=== PATIENT | female | born 1985 | race Caucasian/White ===

== ENCOUNTER 2016-08-05 09:03 | Emergency (ER) | payer OTHER ==
[2016-08-05 09:15] VITALS: BP 154/91
--- NOTE | 2016-08-05 10:24 | UC ---
Octavio Choi Adam, [facility] on 08/05/16 at 0925 . Respiratory Complaint HPI - HPI Summary HPI Summary: Nurse's Note: c/o coughing, runny nose since last night. When pt woke uup this morning, she states her throat feels like its" burning". In Room: Pt states that her chief complaint is coughing because it prevented her from sleeping. The cough just set on last night and it is causing her to have a sore throat too. Prior to last night she had nasal congestion and post- nasal drip for several days. She also feels hotter than normal. She denies any CP, N/V/D, or SOB. She has a Hx of exercise-induced asthma but does not use an inhaler regularly. She does not remember ever having a cough like this before. She states that everyone in her house is sick. Negative PMHx. Pt is not a smoker. FMHx of cardiac disease. - History of Current Complaint Chief Complaint: UCRespiratory Stated Complaint: RESP COMPLAINT Hx Obtained From: Patient Hx Last Menstrual Period: 07/25/16 Onset/Duration: Gradual Onset, Lasting Days, Still Present Timing: Constant Severity Initially: Moderate Severity Currently: Moderate Character: Cough: Nonproductive Aggravating Factors: Deep Breaths Alleviating Factors: Nothing Associated Signs And Symptoms: Positive: URI, Nasal Congestion - Allergies/Home Medications Allergies/Adverse Reactions: Allergies Allergy/AdvReac Type Severity Reaction Status Date / Time No Known Allergies Allergy Verified 08/05/16 09:16 Home Medications: Home Medications Ascorbic Acid TAB* [Vitamin C TAB*] 500 mg PO DAILY 08/05/16 [History Confirmed 08/05/16] Biotin 1 mg PO 08/05/16 [History Confirmed 08/05/16] Cholecalciferol [Vitamin D] 1,000 unit PO 08/05/16 [History] Cyanocobalamin [Vitamin B-12] 100 mcg PO 08/05/16 [History] Shasta-3 Fatty Acids [Fish Oil] 1,000 mg PO 08/05/16 [History] Czjpausgpishx-Dayfgozqnm-Jb-Gu [Severe Cold & Flu Daytime] 1 liq PO 08/05/16 [ History] Pseudoephedrine-Acetaminophen [Sinus Maximum Strength] 1 tab PO 08/05/16 [ History] PMH/Surg Hx/FS Hx/Imm Hx - Surgical History Surgical History: Yes Surgery Procedure, Year, and Place: none - Family History Known Family History: Positive: Cardiac Disease - Social History Occupation: Student Lives: Alone Alcohol Use: Occasionally Substance Use Type: Marijuana Substance Use Comment - Amount & Last Used: occ usage Smoking Status (MU): Never Smoked Tobacco Review of Systems ENT: Sore Throat, Nasal Discharge Respiratory: Cough Cardiovascular: Negative Gastrointestinal: Negative All Other Systems Reviewed And Are Negative: Yes Physical Exam Triage Information Reviewed: Yes Appearance: Well-Appearing, No Pain Distress, Well-Nourished Vital Signs: Initial Vital Signs Temp 98.4 F 08/05/16 09:06 Pulse 106 08/05/16 09:06 Resp 16 08/05/16 09:06 BP 154/91 08/05/16 09:06 Pulse Ox 96 08/05/16 09:06 Eyes: Positive: Conjunctiva Clear ENT: Positive: Hearing grossly normal, TMs normal, Other: - PHARYNGEAL ERYTHEMA ON THE LEFT. Negative: Muffled/hoarse voice Neck: Positive: Supple, No Lymphadenopathy Respiratory: Positive: Other: - EXTENDED EXPIRATORY PHASE WITH SCATTERED RHONCHI. Cardiovascular: Positive: RRR, No Murmur Abdomen Description: Positive: Nontender, No Organomegaly, Soft Bowel Sounds: Positive: Present Musculoskeletal: Positive: Strength Intact, ROM Intact Neurological: Positive: Alert Psychological: Positive: Age Appropriate Behavior Skin: Negative: rashes UC Diagnostic Evaluation - Laboratory O2 Sat by Pulse Oximetry: 96 Respiratory Course/Dx - Course Course Of Treatment: Prescription monitoring number: [id number]. - Differential Dx/Diagnosis Differential Diagnosis/HQI/PQRI: Other - PNA vs bronchitis Provider Diagnoses: Bronchitis with bronchospasm Discharge - Discharge Plan Condition: Stable Disposition: HOME Prescriptions: Benzonatate CAP* [Tessalon CAP*] 100 mg PO TID #20 cap MDD 3 Dexamethasone TAB* [Decadron TAB*] 4 mg PO DAILY #4 tab Guaifenesin-Codeine [Guaiatussin AC] 1 syp PO QID #1 syp MDD 4 tsp Patient Education Materials: Bronchospasm (ED), Acute Bronchitis (ED) Forms: *Work Release Additional Instructions: WE DISCUSSED: 1. YOU HAVE BRONCHITIS WITH BRONCHOSPASM. 2. RE CHECK AT ANY TIME FOR CHEST PAIN, TEMPERATURE, NEW COUGH. I WILL BE HERE IN TWO DAYS, IF YOU WANT TO CALL ME. 3. YOU HAVE BEEN STARTED ON ALBUTEROL WHICH YOU HAVE AT HOME. 4. ALSO, PREDNISONE. 5. NO ANTIBIOTIC HAS BEEN PRESCRIBED. 6. ALSO COUGH SYRUP WITH CODEINE AND TESSALON CAPS. 7. YOU SHOULD STAY HOME FOR TODAY AND TOMORROW. 8. RE CHECK IF YOU ARE NOT IMPROVING IN 3 DAYS. ALBUTEROL AND SPACER: 2 PUFFS, FOUR TIMES A DAY FOR 2-5 DAYS FOR COUGH ALSO: Guaifenesin AC syrup (guaifenesin 100 mg and codeine 10 mg per 5 ml) Label: 1 teaspoon every 4 to 6 hours as needed for cough at Night Disp: 2 (two) oz Dexamethasone tab 4 mg Label: two tablets daily FOR TWO DAYS Disp: 4 Tessalon (benzonate) 100 mg Perle Label: one tab every 6 to 8 hours as needed for cough during the day Disp:20 COUGH, CONGESTION of CHEST, SINUSES OR EARS: The most important goal is to liquefy all the phlegm and get it out of your head and chest. Any illness causing cough, congestion, sore throat or sinus discomfort can be helped by doing the following: STAND UNDER SHOWER STREAM TO LOOSEN SECRETIONS. STAY AWAY FROM ANY SMOKE OR IRRITANTS. WHAT ELSE CAN HELP RELIEVE YOUR SYMPTOMS: DECONGESTANT: helps relieve stuffiness and clears sinuses. Pseudoephedrine ( Sudafed or generic) is effective but you need to ask the pharmacist for it because it may be kept behind the counter. ANTIHISTAMINES: are NOT helpful in many colds and flus because they can worsen sore throat, dry eyes and mouth and cause drowsiness. Examples are diphenhydramine, doxylamine and chlorpheniramine. They can help dry you out if you are having profuse, clear drainage from the nose. EXPECTORANTS: helps thin mucous in the nose and chest, making it easier to clear the fluid out. Expectorants are in most combination cough/cold remedies and should be taken with plenty of water. Guaifenesin is the most common expectorant and it comes in pill or liquid form. Mucinex is an extended release form of guaifenesin. COUGH SUPPRESANT: reduces the body's cough reflex. Dextromethorphan is in over the counter products, but sometimes narcotics such as codeine or hydrocodone are used to suppress cough. The most important goal is to liquefy all the phlegm and get it out of your head and chest: The following medicines (in prescription form or you can buy them without prescription) may help: To help with cough: DEXTROMETHORPHAN (Vicks, Robitussin, Nyquil and other brands) To help break up phlegm: GUAIFENESIN (Mucinex, Robitussin, other brands) To help clear congestion: PSEUDOEPHEDRINE (Sudafed, Dimetapp, other brands) TRY TO CLEAR NOSE: AFRIN NASAL SPRAY: 2-3 SPRAYS PER NOSTRIL, TWICE A DAY FOR TWO DAYS ONLY. STAND UNDER SHOWER STREAM TO LOOSEN SECRETIONS. USE A VAPORIZOR. STAY AWAY FROM ANY SMOKE OR IRRITANTS. USE SALINE NASAL SPRAY TO KEEP FLOW OF MUCOUS FROM NOSTRILS AND SINUSES. CONSIDER USING NETI POT TO HELP WITH ALLERGIES AND CONGESTION IN THE NOSE. USE THIS THREE TIMES A WEEK. YOU CAN GET THIS AT [employer] IN [place] OR VARIOUS DRUGSTORES. DRINK LOTS OF WARM FLUIDS USEFUL HOME REMEDIES: WARM WATER GARGLES, WITH TSP OF SALT PER 8 OUNCES OF WATER, GARGLE FOR A FEW SECONDS AND SPIT OUT; GARGLE AND SPIT OUT; EVERY THREE HOURS. AND/OR: WARM WATER OR TEA, HONEY AND LEMON; 2-3 CUPS A DAY. FOR SORE THROAT: KEEP THROAT MOIST WITH LOZENGES; TEA AND HONEY. USE WARM WATER GARGLES 3-4 TIMES A DAY. RE-CHECK IN 1O DAYS, NEEDED, IF YOU ARE NOT IMPROVING. RETURN HERE OR SEE YOUR PHYSICIAN. RE-CHECK SOONER IF INCREASED PAIN OR TEMPERATURE The documentation as recorded by the Octavio garcia Adam accurately reflects the service I personally performed and the decisions made by me, Rupesh Varela MD.
== END 2016-08-05 10:30 | disposition home or self-care (01) ==
LOC: UCEAST 09:03
DX: J20.9 Acute bronchitis, unspecified (principal); F12.90 Cannabis use, unspecified, uncomplicated
CPT/HCPCS: 99212; G0463

== ENCOUNTER 2016-09-11 06:37 | Day surgery (SDC) | payer MEDICAID, OTHER ==
[~2016-09-11 06:37] MED LIST: Buffered Lidocaine 1% SYR 3ML* 3 ML/SYR SYRINGE INTRADERM ONE; Famotidine IV* 10 MG/ML 2 ML (20 mg) IV ONE; Famotidine IV* 10 MG/ML 2 ML (20 mg) ONE
[2016-09-11 06:41] LABS: Manual Entry Verification CAR0052; UR Preg Internal Control QC Line Present; UR Preg Kit Lot# 6060104
[2016-09-11] MEDS ORDERED: fentaNYL* 50 MCG/ML 2 ML VIAL (100 MCG VIAL) ONE ×4 (07:42→08:59)
[2016-09-11] MEDS ORDERED: Lidocaine 2% PF * 5 ML VIAL ONE ×2 (07:42→07:43)
[2016-09-11] MEDS ORDERED: Midazolam* 1 MG/ML 5 ML VIAL (5 MG) ONE ×2 (07:42)
[2016-09-11] MEDS ORDERED: Ketorolac INJ* 30 MG/ML 1 ML VIAL ONE ×2 (07:42→07:43)
[2016-09-11] MEDS ORDERED: Ondansetron INJ* 2 MG/ML VIAL ONE ×2 (07:43)
[2016-09-11] MEDS ORDERED: Propofol* 10 MG/ML 20 ML BTL IV PUSH ONE ×2 (07:43)
[2016-09-11] MEDS ORDERED: KETAMINE HCL* 50 MG/ML 10 ML VIAL ONE ×2 (08:00)
[2016-09-11] MEDS ORDERED: Silver Nitrate/Potassium Nitr* 1 EA STICK ONE ×4 (08:38→08:51)
[2016-09-11] MEDS ORDERED: Acetaminophen TAB* 325 MG PO PRN (08:52)
[2016-09-11] MEDS ORDERED: DiMENhydriNATE IV* 50 MG/ML VIAL IV PUSH PRN (08:52)
[2016-09-11] MEDS ORDERED: Acetaminophen TAB* 325 MG ONE ×2 (08:56)
[2016-09-11] MEDS: fentaNYL* 50 MCG/ML 2 ML VIAL (100 MCG VIAL) IV PRN ×2 (09:00→09:15)
[2016-09-11 09:58] VITALS: BP 137/85
--- NOTE | 2016-09-12 00:44 | OP ---
DATE OF PROCEDURE: 09/11/16 [facility] DATE OF : 87 SURGEON: Maria Romo MD ANESTHESIOLOGIST: Magdalena Zarate MD ANESTHESIA: Monitored anesthesia care and local anesthesia. PRE-OP DIAGNOSIS: Desires permanent sterilization. POST-OP DIAGNOSIS: Desires permanent sterilization. OPERATIVE PROCEDURE: Hysteroscopy and Essure sterilization. ESTIMATED BLOOD LOSS: Minimal. FLUIDS: Crystalloid. DRAINS: None. FINDINGS: Normal appearing uterine cavity. COMPLICATIONS: None. COUNTS: Correct. DESCRIPTION OF PROCEDURE: After informed consent was signed, the patient was taken to the operating room where she was given monitored anesthesia care, which she was prepped and draped in the dorsal lithotomy position and a candy- cane stirrups. A speculum was placed into the vagina to expose the cervix and the anterior lip of the cervix was grasped with a single-tooth tenaculum. A 1% lidocaine with epinephrine was injected into the cervix, approximately 9 mL to provide a cervical block. The cervix was then easily dilated until the hysteroscope could be inserted. The hysteroscope was assembled and inserted and the uterine cavity was visualized. There was some difficulty with obtaining adequate visualization of the uterine cavity because the patient's cervix did not create a good seal around the hysteroscope. Eventually, good visualization was had of both ostia. The Essure device was then inserted through the hysteroscope and first inserted into the right tube. A device was deployed and 2 rings were left visualized in the uterine cavity. The second Essure device was inserted through the hysteroscope and deployed into the left tube and 3 rings were left visualized in the uterine cavity. The hysteroscope was then removed. The tenaculum was removed and there was good hemostasis with silver nitrate. Speculum was removed from the vagina. The patient was awakened from anesthesia and moved to the stretcher and taken to the recovery room in stable condition. [id number]/[facility] #: [id number] MTDKaylee
== END 2016-09-11 09:56 | disposition home or self-care (01) ==
LOC: OR 06:37
PROVIDERS: ATTEND Obstetrics & Gynecology
DX: Z30.2 Encounter for sterilization (principal)
CPT/HCPCS: 81025; A9270-GY; J1885; J2250; J2405; J2704; J3010; J7306

== ENCOUNTER 2016-11-03 18:08 | Emergency (ER) | payer OTHER ==
[2016-11-03 19:24] VITALS: BP 128/85
--- NOTE | 2016-11-03 19:45 | UC ---
Lower Extremity/Ankle HPI - HPI Summary HPI Summary: Rolled L ankle stepping down one step earlier this afternoon. Multiple sprains on that ankle before, no previous sx or fx. Is bearing weight. - History of Current Complaint Chief Complaint: UCLowerExtremity Stated Complaint: ANKLE INJURY FROM FALL Time Seen by Provider: 11/03/16 19:32 Hx Obtained From: Patient Hx Last Menstrual Period: 10/05/16 ?: No Onset/Duration: Sudden Onset Severity Initially: Moderate Severity Currently: Moderate Aggravating Factor(s): Standing, Ambulation Alleviating Factor(s): Rest Able to Bear Weight: Yes - Allergies/Home Medications Allergies/Adverse Reactions: Allergies Allergy/AdvReac Type Severity Reaction Status Date / Time Acetaminophen [From Percocet] Allergy EXTREME Verified 11/03/16 19:24 HEADACHES Oxycodone [From Percocet] Allergy EXTREME Verified 11/03/16 19:24 HEADACHES PMH/Surg Hx/FS Hx/Imm Hx Respiratory History Of: Reports: Asthma - PRN INHALER, Bronchitis - 08/2016 - Surgical History Surgical History: Yes Surgery Procedure, Year, and Place: -4 YEARS AGO - Family History Known Family History: Positive: Cardiac Disease - Social History Lives: With Family Alcohol Use: Occasionally Substance Use Type: None Substance Use Comment - Amount & Last Used: occ usage Smoking Status (MU): Never Smoked Tobacco Review of Systems Constitutional: Negative Skin: Negative Eyes: Negative ENT: Negative Respiratory: Negative Cardiovascular: Negative Gastrointestinal: Negative Genitourinary: Negative Motor: Negative Neurovascular: Negative Musculoskeletal: Arthralgia - L ankle Neurological: Negative Psychological: Negative All Other Systems Reviewed And Are Negative: Yes Physical Exam Triage Information Reviewed: Yes Appearance: Well-Appearing, Pain Distress - mild, Obese Vital Signs: Initial Vital Signs Temp 98.9 F 11/03/16 19:20 Pulse 78 11/03/16 19:20 Resp 20 11/03/16 19:20 BP 128/85 11/03/16 19:20 Pulse Ox 99 11/03/16 19:20 Vital Signs Reviewed: Yes Eye Exam: Normal Eyes: Positive: Conjunctiva Clear ENT Exam: Normal ENT: Positive: Normal ENT inspection, Hearing grossly normal, Pharynx normal, TMs normal Dental Exam: Normal Neck exam: Normal Neck: Positive: Supple, Nontender, No Lymphadenopathy Respiratory Exam: Normal Respiratory: Positive: Chest non-tender, Lungs clear, Normal breath sounds, No respiratory distress, No accessory muscle use Cardiovascular Exam: Normal Cardiovascular: Positive: RRR, No Murmur Musculoskeletal: Positive: ROM Intact, Other: - L lateral malleolus tenderness Neurological Exam: Normal Neurological: Positive: Alert Psychological Exam: Normal Skin Exam: Normal Lower Extremity Course/Dx - Differential Dx/Diagnosis Provider Diagnoses: L ankle sprain. Elevated blood pressure due to pain Discharge - Discharge Plan Condition: Stable Disposition: HOME Patient Education Materials: Ankle Sprain (ED) Referrals: Rupert Ritchie MD [Medical Doctor] - Additional Instructions: Ice, elevate, and use ibuprofen for pain. If you are still having significant pain or trouble with daily activities after 2 weeks, please see the orthopedist listed here.
--- NOTE | 2016-11-03 20:08 | RAD ---
HISTORY: Injury, left ankle COMPARISONS: None VIEWS: 3, Frontal, lateral, and oblique views of the left ankle FINDINGS: BONE DENSITY: Normal. BONES: There is no displaced fracture. JOINTS: There is no arthropathy. ALIGNMENT: There is no dislocation. SOFT TISSUES: There is circumferential soft tissue swelling OTHER FINDINGS: None. IMPRESSION: SOFT TISSUE SWELLING. NO ACUTE OSSEOUS INJURY. IF SYMPTOMS PERSIST, RECOMMEND REPEAT IMAGING.
== END 2016-11-03 20:35 | disposition home or self-care (01) ==
LOC: UCEAST 18:08
DX: S93.402A Sprain of unspecified ligament of left ankle, initial encounter (principal); W10.9XXA Fall (on) (from) unspecified stairs and steps, initial encounter; R03.0 Elevated blood-pressure reading, without diagnosis of hypertension; R52 Pain, unspecified; J45.909 Unspecified asthma, uncomplicated; Z87.09 Personal history of other diseases of the respiratory system; Z88.5 Allergy status to narcotic agent; Z88.6 Allergy status to analgesic agent
CPT/HCPCS: 99211; G0463

== ENCOUNTER 2017-01-25 13:17 | Emergency (ER) | payer OTHER ==
--- NOTE | 2017-01-25 13:20 | ED ---
Back Pain - HPI Summary HPI Summary: PATIENT SEEN BY ANDREW NUNEZ. - History of Current Complaint Stated Complaint: BACK PAIN Time Seen by Provider: 01/25/17 13:19 Hx Last Menstrual Period: 10/05/16 - Allergies/Home Medications Allergies/Adverse Reactions: Allergies Allergy/AdvReac Type Severity Reaction Status Date / Time Oxycodone [From Percocet] Allergy EXTREME Verified 01/25/17 14:45 HEADACHES Home Medications: Home Medications Aleve* 2 tab PO PRN 01/25/17 [History] Amoxicillin PO (*) [Amoxicillin 875 MG (*)] 875 mg PO BID 01/25/17 [History Confirmed 01/25/17] Ibuprofen TAB* [Advil TAB*] 600 mg PO PRN 01/25/17 [History] Multiple Vitamins W/ Minerals [Vitamins & Minerals] 1 tab PO DAILY 01/25/17 [ History Confirmed 01/25/17] PMH/Surg Hx/FS Hx/Imm Hx Respiratory History: Reports: Hx Asthma - PRN INHALER Sensory History: Reports: Hx Contacts or Glasses - GLASSES Denies: Hx Hearing Aid Opthamlomology History: Reports: Hx Contacts or Glasses - GLASSES - Surgical History Surgery Procedure, Year, and Place: -4 YEARS AGO Hx Anesthesia Reactions: No - Family History Known Family History: Positive: Cardiac Disease - Social History Alcohol Use: Occasionally Substance Use Type: Reports: None Substance Use Comment - Amount & Last Used: occ usage Smoking Status (MU): Never Smoked Tobacco Review of Systems All Other Systems Reviewed And Are Negative: No Physical Exam Triage Information Reviewed: No Back Pain Course/Dx - Course Course Of Treatment: PATIENT SEEN BY ANDREW NUNEZ - Diagnoses Provider Diagnoses: Back pain Discharge - Discharge Plan Condition: Stable Disposition: HOME Prescriptions: Cyclobenzaprine TAB* [Flexeril 10 MG TAB*] 10 mg PO BID PRN #10 tab PRN Reason: Spasms Naproxen Sodium [Naproxen Sodium 500 MG TAB] 500 mg PO BID #12 tab Patient Education Materials: Sciatica (ED), Acute Low Back Pain (ED) Forms: *Work Release Referrals: [facility] [Outside] [facility] [Outside] No Primary Care Phys,NOPCP [Primary Care Provider] - Additional Instructions: PHYSICAL THERAPY REFERRAL: You have been prescribed physical therapy. Treatments may include stretching, exercise, application of heat or cold, and other modalities. After an injury, PT can reduce swelling and pain. In recovery, PT is used to restore mobility and strength. Your specific treatment goals are: ____x_ Reduction of Swelling (EGS, US, ice as needed) ___x__ Pain Reduction (EGS, US, ice as needed) ____x_ TENS Pack Fitting and Instruction Wound Hydrotherapy ___x__ Preservation of Mobility ___x__ Religion of Mobility ___x__ Strength Religion ___x__ Work or Sports Hardening This instruction sheet also serves as your PHYSICAL THERAPY REFERRAL! Please take it with you to the therapist, so he/she will be aware of your diagnosis and treatment plan. You may see the physical therapist of your choice for these treatments, but may wish to check with your insurance to be sure the provider you select is covered. It's important to see the doctor to whom you have been referred for follow up. PRIMARY CARE: There are four major types of clinical preventive care: immunizations, screening , behavioral counseling (sometimes referred to as lifestyle changes), and chemoprevention. All four apply throughout the life span. It is important to establish and to have access to a Primary Care Physician, not only for follow- up regrding acute and chronic problems, but also for preventative care.
[2017-01-25 15:08] VITALS: BP 136/78
--- NOTE | 2017-01-25 15:47 | UC ---
Back Pain HPI - HPI Summary HPI Summary: TWO DAYS OF LOWER BACK PAIN AFTER BENDING TO LOOK IN BOTTOM OF FRIDGE. NO TRAUMA. NO PAIN WITH URINATION. NO LOSS OF CONTROL OF BLADDER OR BOWELS. ABLE TO BEAR WEIGHT. FOR TWO MONTHS HAS BEEN EXERCISING. - History of Current Complaint Chief Complaint: UCBackPain Stated Complaint: BACK PAIN Time Seen by Provider: 01/25/17 13:19 Hx Obtained From: Patient Hx Last Menstrual Period: 3 WEEKS AGO Onset/Duration: Gradual Onset, Lasting Days, Still Present Timing: Lasting Days Severity Initially: Moderate Severity Currently: Moderate Back Pain: Radiates To - LEGS Character: Aching, Spasmodic Aggravating: Movement, Lifting, Bending Alleviating: Rest, Position Associated Signs And Symptoms: Negative: Swelling, Redness, Bruising, Fever, Weakness, Numbness, Tingling, Bladder Incontinence, Bowel Incontinence, Weight Loss, Pain with Weight Bearing - Risk Factors AAA Risk Factors: Negative TAD Risk Factors: Negative Cauda Equina Risk Factors: Negative Epidural Abscess Risk Factors: Negative - Allergies/Home Medications Allergies/Adverse Reactions: Allergies Allergy/AdvReac Type Severity Reaction Status Date / Time Oxycodone [From Percocet] Allergy EXTREME Verified 01/25/17 14:45 HEADACHES Home Medications: Home Medications Aleve* 2 tab PO PRN 01/25/17 [History] Amoxicillin PO (*) [Amoxicillin 875 MG (*)] 875 mg PO BID 01/25/17 [History Confirmed 01/25/17] Ibuprofen TAB* [Advil TAB*] 600 mg PO PRN 01/25/17 [History] Multiple Vitamins W/ Minerals [Vitamins & Minerals] 1 tab PO DAILY 01/25/17 [ History Confirmed 01/25/17] PMH/Surg Hx/FS Hx/Imm Hx Previously Healthy: Yes - Surgical History Surgical History: Yes Surgery Procedure, Year, and Place: , STERILIZATION PROCEDURE (COILS IN FALLOPIAN TUBES) - Family History Known Family History: Positive: Cardiac Disease - Social History Alcohol Use: None Substance Use Type: Marijuana Substance Use Comment - Amount & Last Used: occ usage Smoking Status (MU): Never Smoked Tobacco Review of Systems Constitutional: Negative Skin: Negative Eyes: Negative ENT: Negative Respiratory: Negative Cardiovascular: Negative Gastrointestinal: Negative Genitourinary: Negative Motor: Negative Neurovascular: Negative Musculoskeletal: Arthralgia, Myalgia Neurological: Negative Psychological: Negative All Other Systems Reviewed And Are Negative: Yes Physical Exam Triage Information Reviewed: Yes Appearance: Well-Appearing, No Pain Distress, Well-Nourished Vital Signs: Initial Vital Signs Temp 98.3 F 01/25/17 14:39 Pulse 94 01/25/17 14:39 Resp 18 01/25/17 14:39 BP 136/78 01/25/17 14:39 Pulse Ox 98 01/25/17 14:39 Vital Signs Reviewed: Yes Eye Exam: Normal ENT Exam: Normal ENT: Positive: Normal ENT inspection, TMs normal Dental Exam: Normal Neck exam: Normal Neck: Positive: Supple, Nontender Respiratory Exam: Normal Respiratory: Positive: Chest non-tender, Lungs clear, Normal breath sounds, No respiratory distress Cardiovascular Exam: Normal Cardiovascular: Positive: RRR, No Murmur, Pulses Normal Abdominal Exam: Normal Abdomen Description: Positive: Nontender, No Organomegaly Musculoskeletal: Positive: Strength Intact, ROM Intact, No Edema, Other: Neurological Exam: Normal Psychological Exam: Normal Skin Exam: Normal Back Pain Course/Dx - Differential Dx/Diagnosis Differential Diagnosis/HQI/PQRI: Strain, Sprain Provider Diagnoses: LOW BACK PAIN; SCIATICA Discharge - Discharge Plan Condition: Stable Disposition: HOME Prescriptions: Cyclobenzaprine TAB* [Flexeril 10 MG TAB*] 10 mg PO BID PRN #10 tab PRN Reason: Spasms Naproxen Sodium [Naproxen Sodium 500 MG TAB] 500 mg PO BID #12 tab Patient Education Materials: Sciatica (ED), Acute Low Back Pain (ED) Forms: *Work Release Referrals: [facility] [Outside] [facility] [Outside] No Primary Care Phys,NOPCP [Primary Care Provider] - Additional Instructions: PHYSICAL THERAPY REFERRAL: You have been prescribed physical therapy. Treatments may include stretching, exercise, application of heat or cold, and other modalities. After an injury, PT can reduce swelling and pain. In recovery, PT is used to restore mobility and strength. Your specific treatment goals are: ____x_ Reduction of Swelling (EGS, US, ice as needed) ___x__ Pain Reduction (EGS, US, ice as needed) ____x_ TENS Pack Fitting and Instruction Wound Hydrotherapy ___x__ Preservation of Mobility ___x__ Yazdanism of Mobility ___x__ Strength Yazdanism ___x__ Work or Sports Hardening This instruction sheet also serves as your PHYSICAL THERAPY REFERRAL! Please take it with you to the therapist, so he/she will be aware of your diagnosis and treatment plan. You may see the physical therapist of your choice for these treatments, but may wish to check with your insurance to be sure the provider you select is covered. It's important to see the doctor to whom you have been referred for follow up. PRIMARY CARE: There are four major types of clinical preventive care: immunizations, screening , behavioral counseling (sometimes referred to as lifestyle changes), and chemoprevention. All four apply throughout the life span. It is important to establish and to have access to a Primary Care Physician, not only for follow- up regrding acute and chronic problems, but also for preventative care.
== END 2017-01-25 15:42 | disposition home or self-care (01) ==
LOC: UCEAST 13:17
DX: M54.30 Sciatica, unspecified side (principal); Z88.5 Allergy status to narcotic agent; F12.90 Cannabis use, unspecified, uncomplicated
CPT/HCPCS: 84702; 99212; G0463

== ENCOUNTER 2018-08-30 21:50 | Emergency (ER) | payer SELFPAY ==
--- NOTE | 2018-08-30 22:15 | ED ---
Altered Mental Status - HPI Summary HPI Summary: LIMITED DUE TO LEVEL 5 CAVEAT: Patient is confused and not very verbally responsive. This patient is a 33 year old F brought in by her boyfriend to [facility] with a chief complaint of an unwitnessed fall at 09:00 today. Her boyfriend reports that she has been difficult to wake up, has loss of memory (starting 18:30 today she has not recognized the boyfriend), and says that patient has said my brain hurts and my brain is hot. Patient was able to ambulate short distances with the assistance of her boyfriend. Boyfriend reports that to his knowledge, nothing like this has happened to her before. Patient recently had control implants which the boyfriend says has been causing problems. - History Of Current Complaint Chief Complaint: EDGeneral Stated Complaint: ABD PAIN/FALL Time Seen by Provider: 08/30/18 22:02 Hx Obtained From: Other: - Boyfriend Hx From Patient Unobtainable Due To: Altered Mental Status Hx Last Menstrual Period: 10/05/16 Onset/Duration: Still Present Timing: Constant, Lasting Hours Character: Confusion, Lethargy Associated Signs And Symptoms: Positive: Headache, Recent Trauma - Fall at 09: 00 today - Allergies/Home Medications Allergies/Adverse Reactions: Allergies Allergy/AdvReac Type Severity Reaction Status Date / Time oxycodone Allergy Headache Verified 08/30/18 21:59 PMH/Surg Hx/FS Hx/Imm Hx Previously Healthy: No - LIMITED DUE TO LEVEL 5 CAVEAT: Patient is confused, not verbally responsive Respiratory History: Reports: Hx Asthma - PRN INHALER Sensory History: Reports: Hx Contacts or Glasses - GLASSES Denies: Hx Hearing Aid Opthamlomology History: Reports: Hx Contacts or Glasses - GLASSES - Surgical History Surgery Procedure, Year, and Place: -4 YEARS AGO Hx Anesthesia Reactions: No - Immunization History Date of Tetanus Vaccine: unk Date of Influenza Vaccine: unk Infectious Disease History: No Infectious Disease History: Denies: Traveled Outside the [place] in Last 30 Days - Family History Known Family History: Positive: Cardiac Disease - Social History Alcohol Use: Occasionally Substance Use Type: Reports: None Substance Use Comment - Amount & Last Used: occ usage Smoking Status (MU): Never Smoked Tobacco Review of Systems - ROS Summary Review of Systems Summary: LIMITED DUE TO LEVEL 5 CAVEAT: Patient is confused and not very verbally responsive. Neurological: Other - Loss of memory, difficult to wake up Positive: Headache - "My brain hurts and my brain is hot." All Other Systems Reviewed And Are Negative: No Physical Exam - Summary Physical Exam Summary: LIMITED DUE TO LEVEL 5 CAVEAT: Patient is confused and not very verbally responsive. Appearance: Well-appearing, Well-nourished, lying in bed comfortable Skin: Warm, dry, no obvious rash Eyes: sclera anicteric, no conjunctival pallor ENT: mucous membranes moist Neck: deferred Respiratory: No signs of respiratory distress Cardiovascular: Appears well perfused, pulses are nml Abdomen: deferred Musculoskeletal: Moving all 4 extremities without obvious discomfort Neurological: Awake, alert, tearful at times. Doesnt know where she lives. Doesnt know the month. Doesnt know the year. Not sure where she is right now. Psychiatric: affect is quite guarded, she appears upset and tearful at times. She says she is seeing "sparkle lights" at times but does not seem fearful of them, so does seem to be having some type of visual hallucination. Triage Information Reviewed: Yes Vital Signs On Initial Exam: Initial Vitals Temp Pulse Resp BP Pulse Ox 0 F 0 16 0/0 0 08/30/18 21:55 08/30/18 21:55 08/30/18 21:55 08/30/18 21:55 08/30/18 21:55 Vital Signs Reviewed: Yes - [place] Coma Scale Best Eye Response: 4 - Spontaneous Best Motor Response: 6 - Obeys Commands Best Verbal Response: 5 - Oriented Coma Scale Total: 15 Diagnostics - Vital Signs Vital Signs Temp Pulse Resp BP Pulse Ox 08/30/18 21:55 0 F 0 16 0/0 0 - Laboratory Result Diagrams: 08/30/18 22:53 08/30/18 22:53 Lab Statement: Any lab studies that have been ordered have been reviewed, and results considered in the medical decision making process. - CT Brain CT CT Interpretation Completed By: Radiologist Summary of CT Findings: 23:08. No acute intracranial pathology. ED Physician has reviewed this imaging report. Altered Mental Statu Course/Dx - Course Course Of Treatment: LIMITED DUE TO LEVEL 5 CAVEAT: Patient is confused and not very verbally responsive. This is a 33 year old presenting with an acute fugue state. She has no focal neurologic findings and her metabolic workup and imaging are unremarkable other than positive drug screen for cannabinoids. She remains upset, not acting appropriately, and I would like to have mental health evaluate her. - Diagnoses Provider Diagnoses: Altered mental status Discharge - Sign-Out/Discharge Documenting (check all that apply): Patient Departure - D/C Patient Received Moderate/Deep Sedation with Procedure: No - Discharge Plan Condition: Improved Disposition: HOME Patient Education Materials: Altered Mental Status (ED) Referrals: No Primary Care Phys,NOPCP [Primary Care Provider] - Additional Instructions: Per completion of a mental health evaluation, you are cleared for release and do not require inpatient psychiatric hospitalization at this time. Please go to nearest emergency room or call 911 if safety concerns arise or condition worsens. [place] [id number] [phone] Walk-in hours are Thursday - Thursday, 9am - 2:30pm or call for appointment Important Phone Numbers: [facility] ph:[phone] Su[facility] Prevention and Crisis Services ph:[phone] National Suicide Prevention Lifeline ph:[phone]-RUZH (7494) [facility] ph:[phone] [facility] ph:[phone] Alcohol and Drug D[employer] Penetrant Testing Technician (ADC) ph:[phone] [facility] ph:[phone] Alcoholics Anonymous ph:[phone] [facility] ph:[phone] [facility] Police ph:[phone] - Billing Disposition and Condition Condition: IMPROVED Disposition: Home - Attestation Statements Document Initiated by Scribe: Yes Documenting Scribe: Freddy Mayer Provider For Whom Scribe is Documenting (Include Credential): Francisco Crowe MD Scribe Attestation: Freddy Choi, scribed for Francisco Crowe MD on 09/01/18 at 0453. Scribe Documentation Reviewed: Yes Provider Attestation: The documentation as recorded by the Freddy garcia accurately reflects the service I personally performed and the decisions made by me, Francisco Crowe MD Status of Scribe Document: Viewed
[2018-08-30 23:01] LABS: ABS Basophils 0 10^3/ul (0-0.2); ABS Eosinophils 0.1 10^3/ul (0-0.6); ABS Lymphocytes 2.3 10^3/ul (1.0-4.8); ABS Monocytes 0.7 10^3/ul (0-0.8); ABS Neutrophils 7.9 10^3/ul (1.5-7.7); ABS Nucleated RBC 0 10^3/ul; Eosinophil % 0.8 %; Hematocrit 38 % (35-47); Hemoglobin 12.8 g/dl (12.0-16.0); Mean Corpuscular HGB Conc 34 g/dl (31-36); Mean Corpuscular Hemoglobin 29 pg (27-31); Mean Corpuscular Volume 85 fL (80-97); Mean Platelet Volume 8.5 fL (7.4-10.4); Nucleated Red Blood Cells % 0; Platelet Count 276 10^3/ul (150-450); Red Blood Count 4.49 10^6/ul (4.00-5.40); Red Cell Distribution Width 14 % (10.5-15)
[2018-08-30 23:21] LABS: ALT 9 U/L (7-52); AST 12 U/L (13-39); Albumin 4.3 g/dL (3.2-5.2); Albumin/Globulin Ratio 1.3 (1-3); Alkaline Phosphatase 86 U/L (34-104); Anion Gap 8 mmol/L (2-11); BUN/Creatinine Ratio 10.9 (8-20); Blood Urea Nitrogen 7 mg/dL (6-24); CO2 Carbon Dioxide 24 mmol/L (22-32); Calcium 9.3 mg/dL (8.6-10.3); Chloride 107 mmol/L (101-111); EGFR African American 130.1 (>60); EGFR Non-African American 107.5 (>60); Globulin 3.4 g/dL (2-4); Glucose 102 mg/dL (70-100); Potassium 3.7 mmol/L (3.5-5.0); Sodium 139 mmol/L (135-145); Total Protein 7.7 g/dL (6.4-8.9)
[2018-08-30 23:27] LABS: Urine Appearance Cloudy; Urine Bilirubin Negative (Negative); Urine Blood Negative (Negative); Urine Color Yellow; Urine Glucose Negative (Negative); Urine Ketones Negative (Negative); Urine Nitrite Negative (Negative); Urine Protein Negative (Negative); Urine Specific Gravity 1.015 (1.010-1.030); Urine Urobilinogen Negative (Negative)
[2018-08-30 23:29] LABS: Alcohol < 10 mg/dL (<10)
[2018-08-30 23:44] LABS: Barbiturates Urine Screen None Detected (None Detect); Benzodiazepine Urine Screen None Detected (None Detect); Urine Cannabinoids Screen Presumptive Positive (None Detect)
[2018-08-30 23:45] LABS: TSH (Thyroid Stimulating Horm) 2.13 mcIU/mL (0.34-5.60)
[2018-08-31 04:57] VITALS: BP 131/81
== END 2018-08-31 04:56 | disposition home or self-care (01) ==
LOC: ED 21:50
DX: R41.82 Altered mental status, unspecified (principal); R51 Headache; J45.909 Unspecified asthma, uncomplicated; Z88.5 Allergy status to narcotic agent
CPT/HCPCS: 36415; 70450; 80053; 80307; 80320; 81003; 84443; 85025; 99284; G0480